=== PATIENT | female | born 1990 | race Two or more races ===

== ENCOUNTER 2016-06-04 21:35 | Emergency (ER) | payer OTHER ==
[~2016-06-04] VITALS: Ht 152.4 cm; Wt 81.6 kg
[~2016-06-04 21:35] MED LIST: BUPR100T4 PO; FLUO40CA8 PO; TRAZ-144 PO
[2016-06-04 22:28] LABS: *URINE HCG, QUAL NEGATIVE (NEGATIVE)
[2016-06-04 22:41] LABS: BASOPHILS % (AUTO) 0.1 % (0.0-2.0); EOSINOPHILS # (AUTO) 0.4 K/uL (0.0-0.7); EOSINOPHILS % (AUTO) 2.9 % (0.0-7.0); HEMATOCRIT 34.6 % (37.0-47.0); HEMOGLOBIN 11.7 g/dL (12.0-16.0); LYMPHOCYTES % (AUTO) 14.3 % (20.5-51.5); MEAN CORPUSCULAR HEMOGLOBIN 27.7 uug (27.0-31.0); MEAN CORPUSCULAR HGB CONC 34 g/dL (32.0-37.0); MEAN CORPUSCULAR VOLUME 81.7 fL (81.0-99.0); MONOCYTES # (AUTO) 0.5 K/uL (0.1-1.30); MONOCYTES % (AUTO) 3.3 % (0.0-11.0); NEUTROPHILS # (AUTO) 11.2 K/uL (1.8-8.9); NEUTROPHILS % (AUTO) 79.4 % (38.5-71.5); PLATELET COUNT (AUTO) 297 K/uL (150-450); RED BLOOD CELL COUNT(AUTO) 4.24 MIL/uL (4.20-5.40); RED CELL DISTRIBUTION WIDTH 13.4 % (11.5-14.5); WHITE BLOOD COUNT (AUTO) 14.1 K/uL (4.0-11.2)
[2016-06-04 22:45] LABS: CREATININE 0.7 mg/dL (0.6-1.3); POTASSIUM 3.9 mmol/L (3.5-5.1)
[2016-06-04] MEDS ORDERED: KETOROLAC TROMETHAMINE 30 MG INJ IVP ONE (22:45)
[2016-06-04] MEDS ORDERED: ONDANSETRON IV *ER 4 MG/2 ML VIAL IV ONE (22:45)
[2016-06-04 22:51] LABS: ALBUMIN 4.1 g/dL (3.4-5.0); BILIRUBIN,DIRECT 0.1 mg/dL (0.0-0.2); BILIRUBIN,TOTAL 0.3 mg/dL (0.2-1.0); TOTAL PROTEIN, SERUM 7.4 g/dL (6.4-8.2)
[2016-06-04] MEDS ORDERED: KETOROLAC TROMETHAMINE 30 MG INJ ONE (23:08)
[2016-06-04] MEDS ORDERED: ONDANSETRON 4 MG/2 ML VIAL ONE (23:08)
[2016-06-04 23:15] VITALS: BP 124/76
== END 2016-06-04 23:16 | disposition home or self-care (01) ==
LOC: ER 21:40
DX: K80.20 Calculus of gallbladder without cholecystitis without obstruction (principal); F31.9 Bipolar disorder, unspecified
CPT/HCPCS: 36415; 83690; 84703; 85025; 85730; 93005; A4663; J1885; J2405

== ENCOUNTER 2016-06-07 23:43 | Inpatient (IN) | payer OTHER ==
[~2016-06-07] VITALS: Ht 152.4 cm; Wt 81.6 kg
[~2016-06-07 23:43] MED LIST changes: -FLUO40CA8 PO; -TRAZ-144 PO
--- NOTE | 2016-06-07 23:50 | NUR ---
PT WALKED INTO ER C/O POSS ALLERGIC REACTION.PT STATES HAS BEEN ITCHING SINCE .PT STATES ONLY NEW MED TAKEN WAS ADVIL. PT ALERT, ORIENTED X 4, NO RESP DISTRESS NOTED OR REPORTED UPON ASSESSMENT. MD AT BEDSIDE...
[2016-06-08] MEDS ORDERED: EPINEPHRINE 1:1000 30 MG/30 ML VIAL SQ ONE (00:15)
[2016-06-08] MEDS ORDERED: predniSONE 20 MG TABLET PO ONE (00:15)
[2016-06-08] MEDS ORDERED: diphenhydrAMINE 50 MG/1 ML VIAL IM ONE (00:15)
[2016-06-08] MEDS ORDERED: diphenhydrAMINE 50 MG/1 ML VIAL ONE ×2 (00:26→06:22)
[2016-06-08] MEDS ORDERED: predniSONE 10 MG TABLET ONE (00:26)
[2016-06-08] MEDS ORDERED: predniSONE 50 MG TABLET ONE (00:27)
[2016-06-08 00:38] LABS: CALCIUM 9.5 mg/dL (8.5-10.1); CREATININE 0.7 mg/dL (0.6-1.3); POTASSIUM 3.6 mmol/L (3.5-5.1)
[2016-06-08 00:44] LABS: ALBUMIN 4.3 g/dL (3.4-5.0); BILIRUBIN,TOTAL 1.4 mg/dL (0.2-1.0)
[2016-06-08 00:47] LABS: HEMATOCRIT 38.9 % (37.0-47.0); HEMOGLOBIN 12.5 g/dL (12.0-16.0); MEAN CORPUSCULAR HEMOGLOBIN 26.5 uug (27.0-31.0); MEAN CORPUSCULAR HGB CONC 32 g/dL (32.0-37.0); MEAN CORPUSCULAR VOLUME 82.5 fL (81.0-99.0); PLATELET COUNT (AUTO) 330 K/uL (150-450); RED BLOOD CELL COUNT(AUTO) 4.72 MIL/uL (4.20-5.40); RED CELL DISTRIBUTION WIDTH 13.5 % (11.5-14.5); WHITE BLOOD COUNT (AUTO) 5.5 K/uL (4.0-11.2)
[2016-06-08] MEDS ORDERED: EPINEPHRINE 1:1000 30 MG/30 ML VIAL ONE (00:54)
[2016-06-08 00:57] LABS: EOSINOPHILS % (MANUAL) 6 % (0-8); LYMPHOCYTES % (MANUAL) 41 % (20-40); MONOCYTES % (MANUAL) 8 % (2-10); NEUTROPHILS % (MANUAL) 45 % (42-75)
[2016-06-08 00:58] LABS: PLATELET ESTIMATE ADEQUATE
--- NOTE | 2016-06-08 01:00 | NUR ---
SPREADER PAGED TO COME IN FOR GALLBLADDER SCAN...
--- NOTE | 2016-06-08 01:40 | NUR ---
GROUNDWATER PROGRAMS DIRECTOR AT BEDSIDE....
[2016-06-08] MEDS ORDERED: PIPERACILLIN SODIUM/TAZOBACTAM 3.375 G in IV DEXTROSE 5% 50 ML IV ONE (02:30)
[2016-06-08] MEDS ORDERED: METRONIDAZOLE 500 MG/NS 100 ML PIGGYBACK IV ONE (02:30)
--- NOTE | 2016-06-08 02:30 | NUR ---
pt came up from er with erlin running
[2016-06-08] MEDS ORDERED: METRONIDAZOLE 500 MG/NS 100ML 100 ML IV ONE (02:56)
[2016-06-08] MEDS ORDERED: LEVOFLOXACIN 500 MG/D5W 100ML PIGGYBACK IV ONE (03:00)
[2016-06-08] MEDS ORDERED: ONDANSETRON 4 MG/2 ML VIAL IV PRN (03:00)
[2016-06-08] MEDS ORDERED: MAGNESIUM HYDROXIDE 30 ML LIQUID UDC PO PRN (03:00)
[2016-06-08] MEDS ORDERED: ACETAMINOPHEN 325 MG TABLET PO PRN (03:00)
[2016-06-08] MEDS ORDERED: Z GUARD REMEDY PASTE 57 GM TUBE TOP PRN (03:00)
[2016-06-08] MEDS ORDERED: MORPHINE SULFATE 2 MG/1 ML DISP.SYRIN IV PRN (03:00)
[2016-06-08] MEDS ORDERED: IV NS 1000 ML 1,000 ML IV ONE (03:00)
[2016-06-08] MEDS ORDERED: LEVOFLOXACIN 500 MG/D5W 100ML PIGGYBACK IV SCH (03:00)
[2016-06-08] MEDS ORDERED: PIPERACILLIN/TAZOBACTAM/D5W 50 ML IV ONE (03:26)
--- NOTE | 2016-06-08 03:49 | NUR ---
arrived to floor per torres at this time. pt alert and oriented x 4, no c/o pain at this time...if flagyl into rt ac continues at this time. Dr Gaytan aware and new orders rcvd vital signs taken et stabel...t=99c p=90, rr=18, b/p=123/78
[2016-06-08 03:50] VITALS: BP 123/78
--- NOTE | 2016-06-08 04:01 | NUR ---
Pt. admitted to med surg , under care of Dr. Gaytan, Belongs List completed, pt alert, oriented x 4, no resp distress noted or reported upon transfer assessment... pt transferred via gurney....
[2016-06-08 05:06] LABS: *BILIRUBIN,URIN NEGATIVE (NEGATIVE); *BLOOD, URINE Trace-lysed (NEGATIVE); *CLARITY,URINE SLIGHTLY CLOUDY (CLEAR); *COLOR,URINE YELLOW (YELLOW); *KETONES,URINE NEGATIVE (NEGATIVE); *PROTEIN,URINE NEGATIVE (NEGATIVE); *UROBILINOGEN,URINE 0.2 E.U./dl (NORMAL); LEUKOCYTE ESTERASE ,URINE NEGATIVE (NEGATIVE); NITRITE, URINE NEGATIVE (NEGATIVE); UGLUCOSE NEGATIVE (NEGATIVE)
[2016-06-08 05:14] LABS: *URINE HCG, QUAL NEGATIVE (NEGATIVE); BACTERIA,URINE FEW /HPF (NONE SEEN); RBC,URINE 0-3 /HPF (0-3); SQUAMOUS EPITHELIAL CELL,UR FEW /HPF (NONE SEEN); WBC,URINE 0-3 /HPF (0-3)
[2016-06-08] MEDS ORDERED: LEVOFLOXACIN 500 MG/D5W 100 ML ONE (05:38)
[2016-06-08] MEDS: diphenhydrAMINE 50 MG/1 ML VIAL IV PRN ×2 (06:18→17:28)
--- NOTE | 2016-06-08 06:26 | NUR ---
previous levoquin hung...dupicate entry
--- NOTE | 2016-06-08 08:00 | NUR ---
CONTINUE NPO FOR POSSIBLE SURGERY WITH IVF AT 100 ML/HR. CLOSELY MONITORED FOR PAIN
[2016-06-08] MEDS: PANTOPRAZOLE SODIUM 40 MG VIAL IV SCH (08:39)
--- NOTE | 2016-06-08 10:00 | NUR ---
DR JOY CALLED WITH ORDER FOR SURGERY CONSENT SIGNED FOR LAP AKOSUA POSSIBLE OPEN
[2016-06-08] MEDS ORDERED: FENTANYL CITRATE 100 MCG/2 ML AMPUL ONE ×2 (10:56→12:51)
[2016-06-08] MEDS ORDERED: MIDAZOLAM HCL 2 MG/2 ML VIAL ONE (10:56)
[2016-06-08] MEDS ORDERED: HYDROMORPHONE 2 MG/1 ML DISP.SYRIN ONE (10:56)
[2016-06-08] MEDS ORDERED: ROCURONIUM BROMIDE 50 MG/5 ML VIAL ONE (10:57)
[2016-06-08] MEDS ORDERED: SUCCINYLCHOLINE CHLORIDE 200 MG/10 ML VIAL ONE (10:57)
[2016-06-08] MEDS ORDERED: BUPIVACAINE/EPI PF 0.25% 30 ML VIAL ONE (11:06)
[2016-06-08] MEDS ORDERED: DESFLURANE ANESTHESIA GAS 240 ML BOTTLE IH ONE (11:07)
[2016-06-08] MEDS ORDERED: PROPOFOL 200 MG/20 ML BOTTLE IV ONE (11:07)
[2016-06-08] MEDS ORDERED: GLYCOPYRROLATE 0.2 MG/ML VIAL IV ONE (11:08)
[2016-06-08] MEDS ORDERED: NEOSTIGMINE METHYLSULFATE 10 MG/10 ML VIAL IV ONE (11:08)
[2016-06-08] MEDS ORDERED: CEFAZOLIN 1 G VIAL MC ONE (11:09)
[2016-06-08] MEDS ORDERED: ONDANSETRON 4 MG/2 ML VIAL IV ONE (11:09)
[2016-06-08] MEDS ORDERED: DEXAMETHASONE SOD PHOSPHATE 4 MG INJ IV ONE (11:09)
[2016-06-08] MEDS ORDERED: LIDOCAINE HCL 1% 20 ML VIAL MC ONE (11:10)
[2016-06-08] MEDS ORDERED: IV NORMAL SALINE 1000 ML BAG IV ONE (11:11)
[2016-06-08] MEDS ORDERED: IV LACTATED RINGERS SOLUTION 1,000 ML BAG IV ONE (11:11)
[2016-06-08] MEDS ORDERED: IRR NORMAL SALINE IRRIGATION 1,000 ML BOTTLE IR ONE (11:11)
--- NOTE | 2016-06-08 11:20 | NUR ---
TO SURGERY FOR LAP AKOSUA VIA MYESHARARVIN
[2016-06-08 11:38] VITALS: BP 126/81
--- NOTE | 2016-06-08 11:39 | NUR ---
CXR pending, pt admitted to surgery,
--- NOTE | 2016-06-08 13:30 | NUR ---
BACK FROM RECOVERY AWAKE ALERT DRESSING X3 OVER ABDOMEN CLEAN AND DRY NO SIGNS OF BLEEDING
[2016-06-08] MEDS ORDERED: METRONIDAZOLE 500 MG/NS 100ML 500 MG in PREMIXED 1 EACH IV SCH (14:00)
[2016-06-08 15:00] VITALS: BP 150/94
[2016-06-08] MEDS: HYDROMORPHONE 1 MG/1 ML DISP.SYRIN IV PRN ×2 (15:19→23:17)
[2016-06-08] MEDS: POTASSIUM CHLORIDE 20 MEQ in IV D5/ 0.9% NACL 1,000 ML IV PRN (18:07)
--- NOTE | 2016-06-08 18:08 | NUR ---
CONTINUE WITH POST-OP OBSERVATION, PAIN MANAGEMENT, AFEBRILE
--- NOTE | 2016-06-08 19:30 | NUR ---
Patient lying in bed, resting. No complaints of pain at this time. Call light within reach. Will continue to monitor.
[2016-06-08 20:00] VITALS: BP 113/70
[2016-06-08] MEDS ORDERED: CEFAZOLIN 2 G in IV DEXTROSE 5% 100 ML IV SCH (20:00)
[2016-06-08] MEDS: CEFAZOLIN 1 G in PREMIXED 1 EACH IV SCH (21:13)
[2016-06-09] MEDS: CEFAZOLIN 1 G in PREMIXED 1 EACH IV SCH ×3 (04:10→20:05)
[2016-06-09 04:15] VITALS: BP 106/68
[2016-06-09] MEDS ORDERED: LEVOFLOXACIN 500 MG/D5W 500 MG in PREMIXED 1 EACH IV SCH (06:00)
[2016-06-09] MEDS: HYDROCODONE/APAP 5-325MG TABLET PO PRN ×2 (06:00→23:03)
[2016-06-09] MEDS: POTASSIUM CHLORIDE 20 MEQ in IV D5/ 0.9% NACL 1,000 ML IV PRN (06:03)
--- NOTE | 2016-06-09 06:39 | NUR ---
Patient lying in bed comfortably, no s/s of distress. Slept intermittently. Teaching on spirometer use done. Encouraged to ambulate as tolerated. Dressing intact. Pain controlled with medications as ordered. Frequent checks done. Call light kept within reach. Needs attended. Endorsed accordingly.
[2016-06-09 07:54] LABS: HEMATOCRIT 34.5 % (37.0-47.0); HEMOGLOBIN 11.3 g/dL (12.0-16.0); MEAN CORPUSCULAR HEMOGLOBIN 27.3 uug (27.0-31.0); MEAN CORPUSCULAR HGB CONC 33 g/dL (32.0-37.0); MEAN CORPUSCULAR VOLUME 83.3 fL (81.0-99.0); PLATELET COUNT (AUTO) 277 K/uL (150-450); RED BLOOD CELL COUNT(AUTO) 4.14 MIL/uL (4.20-5.40); RED CELL DISTRIBUTION WIDTH 13.2 % (11.5-14.5)
[2016-06-09 07:59] LABS: THYROID STIMULATING HORMONE 1.091 mIU/mL (0.358-3.740)
--- NOTE | 2016-06-09 08:00 | NUR ---
IN BED RESTING WITH C/O MODERATE ABDOMINAL PAIN NO SOB, NO CHEST PAIN. TOLERATING REGULAR DIET POORLY. OBSERVED
[2016-06-09 08:12] LABS: ALBUMIN 3.6 g/dL (3.4-5.0); BILIRUBIN,DIRECT 0.4 mg/dL (0.0-0.2); BILIRUBIN,TOTAL 1.4 mg/dL (0.2-1.0); CALCIUM 8.7 mg/dL (8.5-10.1); CREATININE 0.7 mg/dL (0.6-1.3); MAGNESIUM 1.6 mg/dL (1.8-2.4); PHOSPHOROUS 3.1 mg/dL (2.5-4.9); POTASSIUM 3.9 mmol/L (3.5-5.1); TOTAL PROTEIN, SERUM 6.9 g/dL (6.4-8.2)
[2016-06-09] MEDS: PANTOPRAZOLE SODIUM 40 MG VIAL IV SCH (08:14)
[2016-06-09] MEDS ORDERED: MAGNESIUM SULFATE/D5W 100 ML IV SCH (09:45)
[2016-06-09] MEDS: HYDROMORPHONE 1 MG/1 ML DISP.SYRIN IV PRN ×2 (10:09→14:08)
[2016-06-09] MEDS: IV NS 1000 ML 1,000 ML IV PRN (10:20)
--- NOTE | 2016-06-09 11:00 | NUR ---
SEEN BY DR JOY SEE NOTES
[2016-06-09 11:53] VITALS: BP 104/65
--- NOTE | 2016-06-09 12:00 | NUR ---
MEDICATED 2X FOR ABDOMINAL PAIN WITH GOOD RELIEF
[2016-06-09 12:33] LABS: BASOPHILS % (AUTO) 0.4 % (0.0-2.0); EOSINOPHILS % (AUTO) 0.2 % (0.0-7.0); MONOCYTES % (AUTO) 7.2 % (0.0-11.0); NEUTROPHILS % (AUTO) 68.2 % (38.5-71.5)
[2016-06-09 16:13] VITALS: BP 109/60
--- NOTE | 2016-06-09 17:55 | NUR ---
PATIENT TOLERATING AMBULATION MULTIPLE TIMES AROUND THE HALLWAY. CONTINUE WITH PAIN MANAGEMENT NEEDED. AFEBRILE
--- NOTE | 2016-06-09 19:30 | NUR ---
Patient sitting on chair comfortably with no s/s of distress. No complaints of pain at this time. Call light within reach. Will continue to monitor.
[2016-06-09 20:00] VITALS: BP 113/75
[2016-06-10] MEDS: IV NS 1000 ML 1,000 ML IV PRN (00:24)
[2016-06-10] MEDS: CEFAZOLIN 1 G in PREMIXED 1 EACH IV SCH (04:10)
[2016-06-10 04:40] VITALS: BP 110/67
--- NOTE | 2016-06-10 06:45 | NUR ---
Patient sitting on chair. No complaints of pain at this time. Call light within reach. Due meds given. Frequent checks done. Endorsed accordingly.
[2016-06-10 07:04] LABS: ALBUMIN 3.6 g/dL (3.4-5.0); BILIRUBIN,DIRECT 0.3 mg/dL (0.0-0.2); BILIRUBIN,TOTAL 0.8 mg/dL (0.2-1.0); CALCIUM 8.7 mg/dL (8.5-10.1); CREATININE 0.6 mg/dL (0.6-1.3); MAGNESIUM 1.9 mg/dL (1.8-2.4); PHOSPHOROUS 3.1 mg/dL (2.5-4.9); TOTAL PROTEIN, SERUM 6.9 g/dL (6.4-8.2)
[2016-06-10 07:10] LABS: HEMATOCRIT 32.5 % (37.0-47.0); HEMOGLOBIN 10.7 g/dL (12.0-16.0); MEAN CORPUSCULAR HEMOGLOBIN 27.4 uug (27.0-31.0); MEAN CORPUSCULAR HGB CONC 33 g/dL (32.0-37.0); MEAN CORPUSCULAR VOLUME 83.2 fL (81.0-99.0); PLATELET COUNT (AUTO) 260 K/uL (150-450); RED CELL DISTRIBUTION WIDTH 13.6 % (11.5-14.5)
[2016-06-10 07:20] LABS: WHITE BLOOD COUNT (AUTO) 5.9 K/uL (4.0-11.2)
[2016-06-10] MEDS: PANTOPRAZOLE SODIUM 40 MG VIAL IV SCH (08:27)
[2016-06-10 10:14] LABS: IRON, SERUM 44 ug/dL (50-175)
[2016-06-10 10:45] LABS: BASOPHILS % (MANUAL) 2 % (0-2); EOSINOPHILS % (MANUAL) 4 % (0-8); LYMPHOCYTES % (MANUAL) 26 % (20-40); MONOCYTES % (MANUAL) 3 % (2-10); NEUTROPHILS % (MANUAL) 65 % (42-75); PLATELET ESTIMATE ADEQUATE
[2016-06-10] MEDS ORDERED: HYDR-3326 PO ×2 (11:09→11:10)
[2016-06-10] MEDS ORDERED: Cephalexin Monohydrate PO ×2 (11:09→11:10)
[2016-06-10 11:20] VITALS: BP 110/74
[2016-06-10] MEDS ORDERED: CEPHALEXIN MONOHYDRATE 500 MG CAPSULE PO SCH (13:00)
--- NOTE | 2016-06-10 14:02 | NUR ---
DISCHARGE PROTOCOL FOLLOWED, IV REMOVED WITH NO REDNESS OR IRRITATION NOTED. INSTRUCTIONS PROVIDED REGARDING FOLLOW UP AND PRESCRIPTION, PT VERBALIZED UNDERSTANDING. ALL BELONGINGS ACCOUNTED FOR. PT LEFT AMBULATORY WITH FRIEND IN PRIVATE CAR.
[2016-06-11] MEDS ORDERED: PANTOPRAZOLE SODIUM 40 MG TABLET.DR PO SCH (07:00)
== END 2016-06-10 14:00 | disposition home or self-care (01) | DRG 263 ==
LOC: ER 23:46 → MED 06-08 03:22
PROVIDERS: ADMIT Internal Medicine; ATTEND Internal Medicine
PROC: 0FT44ZZ Resection of Gallbladder, Percutaneous Endoscopic Approach (ICD-10-PCS; principal; 2016-06-08 11:34)
DX: K81.0 Acute cholecystitis (principal); E83.42 Hypomagnesemia; I10 Essential (primary) hypertension; E28.2 Polycystic ovarian syndrome; E66.9 Obesity, unspecified; E78.5 Hyperlipidemia, unspecified; L29.9 Pruritus, unspecified; R74.0 Nonspecific elevation of levels of transaminase and lactic acid dehydrogenase [LDH]; R55 Syncope and collapse; E66.01 Morbid (severe) obesity due to excess calories; Z68.35 Body mass index [BMI] 35.0-35.9, adult; K59.00 Constipation, unspecified; D50.9 Iron deficiency anemia, unspecified; F31.9 Bipolar disorder, unspecified
CPT/HCPCS: 36415; 71010; 83550; 83690; 83735; 84100; 84443; 84703; 85025; A4217; A4663; C9113; J0171; J0330; J0690; J1100; J1170; J1200; J1956; J2250; J2270; J2405; J2543; J2710; J3010; J3475; J3480; J3490; J7030; J7042; J7060; J7120; J7512

== ENCOUNTER 2016-06-15 20:30 | Emergency (ER) | payer OTHER ==
[~2016-06-15] VITALS: Ht 152.4 cm; Wt 81.6 kg
[~2016-06-15 20:30] MED LIST changes: +Cephalexin Monohydrate PO; +HYDR-3326 PO
--- NOTE | 2016-06-15 21:06 | NUR ---
PT WALKED INTO ER WITH PARTNER, REQUESTING WOUND CHECK PT STATES SHE TRIPPED AND CAUGHT HERSELF FROM FALLING, STATES NO BODY IMPACT, BUT STATES WHEN CHECKED DRESSING, DRESSING HAD MORE BLOOD THAN USUAL. PT IS ALERT, ORIENTED X 4, NO RESP DISTRESS NOTED OR REPORTED UPON ASSESSMENT. MD AT BEDSIDE...
--- NOTE | 2016-06-15 21:55 | NUR ---
Patient discharged to home in stable conditon. Written and verbal after care instructions given. Patient verbalizes understanding of instructions. PT walked out of er unassisted with partner and belongings at side...
[2016-06-15 21:57] VITALS: BP 116/97
== END 2016-06-15 21:57 | disposition home or self-care (01) ==
LOC: ER 20:33
DX: Z48.01 Encounter for change or removal of surgical wound dressing (principal); F31.9 Bipolar disorder, unspecified
CPT/HCPCS: 99281; A4663

== ENCOUNTER 2016-07-04 02:12 | Inpatient (IN) | payer OTHER ==
[~2016-07-04] VITALS: Ht 162.6 cm; Wt 76.7 kg
[~2016-07-04 02:12] MED LIST changes: -Cephalexin Monohydrate PO; -HYDR-3326 PO; +birth control
[2016-07-04 03:09] LABS: CALCIUM 9.2 mg/dL (8.5-10.1); CARBON DIOXIDE 30 mmol/L (21-32); CHLORIDE 103 mmol/L (98-107); CREATININE 0.9 mg/dL (0.6-1.3); GFR 75 mL/min (>60); GLUCOSE 82 mg/dL (74-106); POTASSIUM 3.5 mmol/L (3.5-5.1); SODIUM SERUM 139 mmol/L (136-145); UREA NITROGEN, BLOOD 6 mg/dL (7-18)
[2016-07-04 03:11] LABS: BASOPHILS % (AUTO) 0.5 % (0.0-2.0); EOSINOPHILS # (AUTO) 0.3 K/uL (0.0-0.7); EOSINOPHILS % (AUTO) 4.2 % (0.0-7.0); HEMATOCRIT 37.7 % (31.2-41.9); LYMPHOCYTES # (AUTO) 1.7 K/uL (20.0-40.0); MEAN CORPUSCULAR HEMOGLOBIN 28.1 uug (24.7-32.8); MEAN CORPUSCULAR HGB CONC 35 g/dL (32.3-35.6); MEAN CORPUSCULAR VOLUME 81.5 fL (75.5-95.3); MONOCYTES # (AUTO) 0.3 K/uL (2.0-10.0); MONOCYTES % (AUTO) 4.2 % (0.0-11.0); NEUTROPHILS # (AUTO) 5.6 K/uL (1.8-8.9); NEUTROPHILS % (AUTO) 70.1 % (38.5-71.5); PLATELET COUNT (AUTO) 274 K/uL (179-408); RED BLOOD CELL COUNT(AUTO) 4.63 MIL/uL (3.63-4.92); RED CELL DISTRIBUTION WIDTH 12.4 % (12.3-17.7); WHITE BLOOD COUNT (AUTO) 7.9 K/uL (3.8-11.8)
[2016-07-04 03:13] LABS: ETHANOL < 3 MG/DL (0-0)
[2016-07-04 03:14] LABS: ALANINE AMINOTRANSFERASE 33 U/L (14-59); ALBUMIN 4.4 g/dL (3.4-5.0); ALKALINE PHOSPHATASE 76 U/L (50-136); ASPARTATE AMINOTRANSFERASE 16 U/L (15-37); BILIRUBIN,DIRECT 0.2 mg/dL (0.0-0.2); BILIRUBIN,TOTAL 0.5 mg/dL (0.2-1.0); TOTAL PROTEIN, SERUM 8.1 g/dL (6.4-8.2)
[2016-07-04 03:15] LABS: ACETAMINOPHEN < 2.0 ug/mL (10-30)
[2016-07-04] MEDS ORDERED: IV NORMAL SALINE 1000 ML BAG IV ONE (03:30)
[2016-07-04 03:37] LABS: *BILIRUBIN,URIN NEGATIVE (NEGATIVE); *BLOOD, URINE Trace-intact (NEGATIVE); *CLARITY,URINE CLEAR (CLEAR); *COLOR,URINE YELLOW (YELLOW); *KETONES,URINE NEGATIVE (NEGATIVE); *PROTEIN,URINE NEGATIVE (NEGATIVE); *UROBILINOGEN,URINE 0.2 E.U./dl (NORMAL); LEUKOCYTE ESTERASE ,URINE NEGATIVE (NEGATIVE); NITRITE, URINE NEGATIVE (NEGATIVE); PH,URINE 8.5 (5.0-8.0); UGLUCOSE NEGATIVE (NEGATIVE)
[2016-07-04 03:42] LABS: *AMPHETAMINE, URINE NEGATIVE (NEGATIVE); *BARBITURATE, URINE NEGATIVE (NEGATIVE); *CANNABINOID, URINE NEGATIVE (NEGATIVE); *COCCAINE, URINE NEGATIVE (NEGATIVE); *OPIATE, URINE NEGATIVE (NEGATIVE); *PHENCYCLIDINE SCREEN,URINE NEGATIVE (NEGATIVE)
[2016-07-04] MEDS ORDERED: ONDANSETRON 4 MG/2 ML VIAL IV ONE (03:45)
[2016-07-04] MEDS ORDERED: ONDANSETRON 4 MG/2 ML VIAL ONE (03:51)
[2016-07-04 03:53] LABS: *URINE HCG, QUAL NEGATIVE (NEGATIVE); BACTERIA,URINE FEW /HPF (NONE SEEN); RBC,URINE 0-3 /HPF (0-3); SQUAMOUS EPITHELIAL CELL,UR FEW /HPF (NONE SEEN); WBC,URINE 0-3 /HPF (0-3)
[2016-07-04] MEDS ORDERED: MAGNESIUM HYDROXIDE 30 ML LIQUID UDC PO PRN (04:15)
[2016-07-04] MEDS ORDERED: ACETAMINOPHEN 325 MG TABLET PO PRN (04:15)
--- NOTE | 2016-07-04 04:34 | NUR ---
Called for bed. Nurse will call back for a bed.
[2016-07-04 06:54] VITALS: BP 125/87
--- NOTE | 2016-07-04 07:10 | NUR ---
PATIENT RECEIVED IN ROOM ALERT AWAKE IN NO ACUTE DISTRESS. 1:1 SITTER AT BEDSIDE FOR SAFETY.
[2016-07-04 08:00] VITALS: BP 120/87
--- NOTE | 2016-07-04 08:00 | NUR ---
ADMISSION ASSESSMENT DONE. PATIENT CALM AND COOPERATIVE AT THIS TIME. PATIENT VOICED SI. 1:1 SITTER AT BEDSIDE.
[2016-07-04] MEDS: IV NS 1000 ML 1,000 ML IV PRN ×2 (08:12→16:56)
[2016-07-04] MEDS: PANTOPRAZOLE SODIUM 40 MG TABLET.DR PO SCH (08:12)
[2016-07-04] MEDS: ONDANSETRON 4 MG/2 ML VIAL IV PRN ×2 (08:23→16:56)
[2016-07-04 08:38] LABS: CALCIUM 9.2 mg/dL (8.5-10.1); CREATININE 0.8 mg/dL (0.6-1.3)
[2016-07-04] MEDS ORDERED: BUPR300T54 PO (10:46)
[2016-07-04 11:00] VITALS: BP 116/72
[2016-07-04] MEDS: buPROPion XL 150 MG TAB.SR.24H PO SCH (11:28)
--- NOTE | 2016-07-04 12:00 | NUR ---
PATIENT'S FRIEND AT BEDSIDE. PATIENT TALKING AND SMILING.
[2016-07-04 15:10] VITALS: BP 108/72
--- NOTE | 2016-07-04 18:13 | NUR ---
END OF SHIFT NOTE: PATIENT IN NO CUTE DISTRESS THROUGHOUT SHIFT. LITHIUM LEVEL IMPROVED. VSS. STATES PAIN TO ABDOMEN HAS IMPROVED. SR ON MACHINE MOLDER. RESPIRATIONS EVEN AND UNLABORED. IVF RUNNING. IV SITE INTACT AND PATENT. CONTINUES WITH 1:1 SITTER AT BEDSIDE FOR SAFETY.
[2016-07-04 20:00] VITALS: BP 112/63
[2016-07-05] VITALS: BP 102/65
--- NOTE | 2016-07-05 01:07 | NUR ---
nsg: pt requesting anti-anxiety med and refused tele monitor. paged VIKTOR Rodriguez. awaiting call back.
[2016-07-05] MEDS ORDERED: LORAZEPAM 2 MG/1 ML VIAL IV PRN (01:15)
--- NOTE | 2016-07-05 01:15 | NUR ---
arg: Michael design verification engineer called back received order for ativan ivp. also, notified regarding pt refusal for telemetry. will try to put on tele once pt calms down. cont to monitor.
[2016-07-05] MEDS ORDERED: LORAZEPAM 2 MG/1 ML VIAL ONE (01:24)
[2016-07-05 04:00] VITALS: BP 148/85
--- NOTE | 2016-07-05 05:59 | NUR ---
nsg: pt still refused tele monitor. still with 1:1 sitter for safety due to current plan of suicide. cont to monitor.
[2016-07-05] MEDS: PANTOPRAZOLE SODIUM 40 MG TABLET.DR PO SCH ×2 (06:38→06:40)
[2016-07-05 06:54] LABS: BASOPHILS # (AUTO) 0.1 K/uL (0.0-8.0); BASOPHILS % (AUTO) 0.6 % (0.0-2.0); EOSINOPHILS # (AUTO) 0.6 K/uL (0.0-0.7); EOSINOPHILS % (AUTO) 6.7 % (0.0-7.0); HEMATOCRIT 29.4 % (31.2-41.9); HEMOGLOBIN 10.1 g/dL (10.9-14.3); LYMPHOCYTES # (AUTO) 1.9 K/uL (20.0-40.0); LYMPHOCYTES % (AUTO) 21.4 % (20.5-51.5); MEAN CORPUSCULAR HEMOGLOBIN 28.6 uug (24.7-32.8); MEAN CORPUSCULAR HGB CONC 34 g/dL (32.3-35.6); MEAN CORPUSCULAR VOLUME 83.2 fL (75.5-95.3); MONOCYTES # (AUTO) 0.5 K/uL (2.0-10.0); MONOCYTES % (AUTO) 5.3 % (0.0-11.0); NEUTROPHILS # (AUTO) 5.6 K/uL (1.8-8.9); PLATELET COUNT (AUTO) 203 K/uL (179-408); RED BLOOD CELL COUNT(AUTO) 3.54 MIL/uL (3.63-4.92); RED CELL DISTRIBUTION WIDTH 12.7 % (12.3-17.7); WHITE BLOOD COUNT (AUTO) 8.7 K/uL (3.8-11.8)
[2016-07-05 07:28] LABS: ALBUMIN 3.2 g/dL (3.4-5.0); BILIRUBIN,TOTAL 0.5 mg/dL (0.2-1.0); CALCIUM 8.5 mg/dL (8.5-10.1); CREATININE 0.8 mg/dL (0.6-1.3); MAGNESIUM 1.8 mg/dL (1.8-2.4); POTASSIUM 3.4 mmol/L (3.5-5.1)
[2016-07-05 08:00] VITALS: BP 110/70
[2016-07-05 08:32] LABS: CALCIUM 8.5 mg/dL (8.5-10.1); CREATININE 0.8 mg/dL (0.6-1.3); POTASSIUM 3.8 mmol/L (3.5-5.1)
[2016-07-05] MEDS ORDERED: buPROPion 100 MG TABLET PO SCH (09:00)
[2016-07-05] MEDS: buPROPion XL 150 MG TAB.SR.24H PO SCH (09:04)
[2016-07-05 11:33] LABS: IRON, SERUM 87 ug/dL (50-175)
[2016-07-05 12:00] VITALS: BP 137/78
[2016-07-05] MEDS ORDERED: Bupropion Hcl PO (14:54)
[2016-07-05] MEDS ORDERED: PANT40TA2 PO (14:54)
[2016-07-05] MEDS ORDERED: Acetaminophen PO (14:54)
[2016-07-05 16:00] VITALS: BP 108/69
--- NOTE | 2016-07-05 18:01 | NUR ---
Discharge instructions given to pt. Discussed other means of coping and getting help from [facility] after pt verbalized that she did not have any family or close friends to confide in and for emotional support. Refused telephone numbers, verbalized that she could find the numbers on her own. Allowed time for questions. Verbalized understanding of all instructions. Updated that Ambulance to arrive appx. 1815hrs for cone picker.
--- NOTE | 2016-07-05 18:49 | NUR ---
Late Entry for 07/05/16, 1130hrs: Andrei from Poison Control updated on today's [place] level for pt. Updated on pt's condition. Note that per Andrei, since the [place] levels are much decreased to more near normal levels, they will close the case. Physicians notified.
--- NOTE | 2016-07-05 19:08 | NUR ---
Pt picked up by ambulance for transport to [facility] ([facility]). Report given to EMT personnel.
== END 2016-07-05 19:00 | DRG 812 ==
LOC: ER 02:18 → TELE-TD 06:10 → MED 07-05 10:30
PROVIDERS: ADMIT Nurse Practitioner Acute Care; ATTEND Internal Medicine
DX: T43.592A Poisoning by other antipsychotics and neuroleptics, intentional self-harm, initial encounter (principal); D68.9 Coagulation defect, unspecified; F31.9 Bipolar disorder, unspecified; E88.09 Other disorders of plasma-protein metabolism, not elsewhere classified; F43.10 Post-traumatic stress disorder, unspecified; Y92.009 Unspecified place in unspecified non-institutional (private) residence as the place of occurrence of the external cause; Z79.899 Other long term (current) drug therapy; E78.5 Hyperlipidemia, unspecified; E28.2 Polycystic ovarian syndrome; D64.9 Anemia, unspecified; E87.6 Hypokalemia; Z90.49 Acquired absence of other specified parts of digestive tract; Z91.5 Personal history of self-harm; R19.7 Diarrhea, unspecified; R11.2 Nausea with vomiting, unspecified
CPT/HCPCS: 36415; 70030-TC; 71010; 80307; 83550; 83735; 84100; 84703; 85025; 85730; 93005; A4663; G0480-TC; G6040-TC; J2060; J2405; J7030

== ENCOUNTER 2016-09-07 21:55 | Emergency (ER) | payer OTHER ==
[~2016-09-07] VITALS: Ht 152.4 cm; Wt 73.0 kg
[~2016-09-07 21:55] MED LIST changes: +Acetaminophen PO; -BUPR100T4 PO; +Bupropion Hcl PO; +PANT40TA2 PO; -birth control
--- NOTE | 2016-09-07 23:06 | NUR ---
Patient discharged to home in stable conditon. Written and verbal after care instructions given. Patient verbalizes understanding of instructions.
== END 2016-09-07 23:07 | disposition home or self-care (01) ==
LOC: ER 22:00
DX: J02.9 Acute pharyngitis, unspecified (principal); F31.9 Bipolar disorder, unspecified
CPT/HCPCS: A4663

== ENCOUNTER 2016-12-25 12:57 | Emergency (ER) | payer OTHER ==
[~2016-12-25] VITALS: Ht 152.4 cm; Wt 72.6 kg
[2016-12-25] MEDS ORDERED: BUSP15TA3 PO (13:12)
[2016-12-25] MEDS ORDERED: BIRTH CONTROL MED (13:12)
[2016-12-25 13:38] LABS: BASOPHILS # (AUTO) 0.1 K/uL (0.0-8.0); BASOPHILS % (AUTO) 1.1 % (0.0-2.0); EOSINOPHILS % (AUTO) 0.5 % (0.0-7.0); HEMATOCRIT 40.5 % (31.2-41.9); HEMOGLOBIN 13.7 g/dL (10.9-14.3); LYMPHOCYTES # (AUTO) 1.2 K/uL (20.0-40.0); MEAN CORPUSCULAR HEMOGLOBIN 28.5 uug (24.7-32.8); MEAN CORPUSCULAR HGB CONC 34 g/dL (32.3-35.6); MEAN CORPUSCULAR VOLUME 83.9 fL (75.5-95.3); MONOCYTES # (AUTO) 0.3 K/uL (2.0-10.0); MONOCYTES % (AUTO) 4.1 % (0.0-11.0); NEUTROPHILS # (AUTO) 5.2 K/uL (1.8-8.9); NEUTROPHILS % (AUTO) 76.3 % (38.5-71.5); PLATELET COUNT (AUTO) 339 K/uL (179-408); RED BLOOD CELL COUNT(AUTO) 4.82 MIL/uL (3.63-4.92); WHITE BLOOD COUNT (AUTO) 6.8 K/uL (3.8-11.8)
[2016-12-25 13:39] LABS: *BILIRUBIN,URIN NEGATIVE (NEGATIVE); *BLOOD, URINE Trace-intact (NEGATIVE); *CLARITY,URINE CLEAR (CLEAR); *COLOR,URINE YELLOW (YELLOW); *KETONES,URINE NEGATIVE (NEGATIVE); *PROTEIN,URINE 2+ (NEGATIVE); *UROBILINOGEN,URINE 0.2 E.U./dl (NORMAL); LEUKOCYTE ESTERASE ,URINE NEGATIVE (NEGATIVE); NITRITE, URINE NEGATIVE (NEGATIVE); PH,URINE 7.5 (5.0-8.0); UGLUCOSE NEGATIVE (NEGATIVE)
[2016-12-25 13:40] LABS: *URINE HCG, QUAL NEGATIVE (NEGATIVE)
[2016-12-25 13:45] LABS: CREATININE 0.7 mg/dL (0.6-1.3)
[2016-12-25 13:47] LABS: BACTERIA,URINE FEW /HPF (NONE SEEN); MUCUS,URINE MANY /LPF (0-FEW); SQUAMOUS EPITHELIAL CELL,UR MANY /HPF (NONE SEEN); WBC,URINE 0-3 /HPF (0-3)
[2016-12-25 13:50] LABS: BILIRUBIN,DIRECT 0.1 mg/dL (0.0-0.2); BILIRUBIN,TOTAL 0.5 mg/dL (0.2-1.0); TOTAL PROTEIN, SERUM 8.5 g/dL (6.4-8.2)
--- NOTE | 2016-12-25 14:12 | NUR ---
Patient discharged to home in stable conditon. Written and verbal after care instructions given. Patient verbalizes understanding of instructions.PT WALKS IN STEADY GAIT. PT SAYS PAIN HAS COME TO TOLERABLE LEVEL OF 3/10. PT DENESI NAY NAUSEA. PT NOT DRIVING
[2016-12-25 14:14] VITALS: BP 119/81
== END 2016-12-25 14:23 | disposition home or self-care (01) ==
LOC: ER 12:57
DX: K29.20 Alcoholic gastritis without bleeding (principal); F10.988 Alcohol use, unspecified with other alcohol-induced disorder; K92.0 Hematemesis
CPT/HCPCS: 36415; 83690; 84703; 85025; A4663; C9113; J1170; J2405; J7030

== ENCOUNTER 2016-12-26 11:32 | Emergency (ER) | payer OTHER ==
[~2016-12-26] VITALS: Ht 152.4 cm; Wt 72.6 kg
[~2016-12-26 11:32] MED LIST changes: +BIRTH CONTROL MED; +BUSP15TA3 PO
--- NOTE | 2016-12-26 12:00 | NUR ---
MSE COMPLETED. PT D/C'D HOME,ACI GIVEN. PT AMBULATED W/O DIFF/TOOK ALL BELONGINGS.
[2016-12-26 12:01] VITALS: BP 128/92
== END 2016-12-26 12:01 | disposition home or self-care (01) ==
LOC: ER 11:32
DX: K92.0 Hematemesis (principal); K29.20 Alcoholic gastritis without bleeding; F10.10 Alcohol abuse, uncomplicated
CPT/HCPCS: A4663

== ENCOUNTER 2018-08-10 16:25 | Emergency (ER) | payer OTHER ==
[~2018-08-10] VITALS: Ht 152.4 cm; Wt 90.7 kg
[~2018-08-10 16:25] MED LIST changes: -Acetaminophen PO; -PANT40TA2 PO
[2018-08-10] MEDS ORDERED: HYDROCODONE/APAP 10-325 MG TABLET ONE (17:29)
[2018-08-10] MEDS ORDERED: HYDROCODONE/APAP 10-325 MG TABLET PO ONE (17:30)
[2018-08-10 17:38] VITALS: BP 118/76
== END 2018-08-10 17:40 | disposition home or self-care (01) ==
LOC: ER 16:25
DX: S93.402A Sprain of unspecified ligament of left ankle, initial encounter (principal); Z90.49 Acquired absence of other specified parts of digestive tract; Z79.899 Other long term (current) drug therapy; V00.131A Fall from skateboard, initial encounter; Y93.51 Activity, roller skating (inline) and skateboarding; Y92.89 Other specified places as the place of occurrence of the external cause; Y99.8 Other external cause status
CPT/HCPCS: 73610; A4663